=== PATIENT | male | born 1950 | race Caucasian/White ===

== ENCOUNTER 2017-02-13 23:30 | Emergency (ER) | payer SELFPAY ==
--- NOTE | 2017-02-13 23:35 | NUR ---
CALLED TO BE TRIAGE, NO RESPONSE, HE LEFT
--- NOTE | 2017-02-13 23:35 | NUR ---
PATIENT LEFT WITHOUT BEING SEEN BY DR. GUERRERO. NO FURTHER CARE PROVIDED FOR PATIENT.
== END 2017-02-13 23:35 | disposition left against medical advice (07) ==
LOC: MED 23:30
DX: K08.89 Other specified disorders of teeth and supporting structures (principal); Z53.21 Procedure and treatment not carried out due to patient leaving prior to being seen by health care provider

== ENCOUNTER 2019-01-29 05:09 | Emergency (ER) | payer OTHER ==
[~2019-01-29] VITALS: Ht 182.9 cm; Wt 94.3 kg
[2019-01-29 05:11] VITALS: BP 130/54
--- NOTE | 2019-01-29 05:20 | NUR ---
PT TAKEN TO BED 2
--- NOTE | 2019-01-29 05:35 | NUR ---
68 Y/O MALE PRESENTS TO ED, C/O FLU SYMPTOMS. PT STATES FEELING "UNWELL" FOR PAST 2 DAYS. STATES HAVING FEVER; AFEBRILE DURING TRIAGE ASSESSMENT. C/O CONGESTION AND PRODUCTIVE COUGHING WITH YELLOW SPUTUM. LUNG SOUNDS BILAT CLEAR. NO SOB/DIFFICULTY BREATHING NOTED. PT DENIES ANY CHEST PAIN. NO MEDICATIONS TAKEN. PT VSS. ERMD AWARE. WILL CONTINUE TO MONITOR.
--- NOTE | 2019-01-29 06:03 | NUR ---
Charmaine palomo in [facility] - 01/29/19 at [address] Morrell examining patient.
--- NOTE | 2019-01-29 06:11 | NUR ---
PATIENT LEFT WITHOUT BEING SEEN BY DR SANDRA. NO FURTHER CARE PROVIDED FOR PATIENT.
== END 2019-01-29 06:11 | disposition left against medical advice (07) ==
LOC: MED 05:09
DX: R05 Cough (principal); R51 Headache; R53.83 Other fatigue; M79.18 Myalgia, other site; R50.9 Fever, unspecified; J02.9 Acute pharyngitis, unspecified; R09.81 Nasal congestion; Z53.21 Procedure and treatment not carried out due to patient leaving prior to being seen by health care provider
CPT/HCPCS: 87804; 99281